=== PATIENT | male | born 1955 | race Caucasian/White ===

== ENCOUNTER 2019-09-28 09:34 | Outpatient (CLI) | payer MEDICARE, MEDICAID, SELFPAY | END 2019-09-28 09:35 | disposition home or self-care (01) | PROVIDERS: PCP Internal Medicine | DX: H91.90 Unspecified hearing loss, unspecified ear (principal); H61.22 Impacted cerumen, left ear | CPT/HCPCS: 99199 ==

== ENCOUNTER 2019-10-12 12:50 | Outpatient (CLI) | payer MEDICARE, MEDICAID, SELFPAY | END 2019-10-12 12:51 | disposition home or self-care (01) | LOC: ANHAUDIO 12:58 | PROVIDERS: PCP Internal Medicine; Referring Provider Internal Medicine; Visit Provider Internal Medicine | DX: E87.1 Hypo-osmolality and hyponatremia (principal); R53.83 Other fatigue | CPT/HCPCS: 92557; 92567 ==

== ENCOUNTER 2020-01-11 13:00 | Outpatient (RCR) | payer MEDICARE, MEDICAID, SELFPAY | END 2020-01-11 23:59 | disposition home or self-care (01) | LOC: ANHAUDIO 13:00 | PROVIDERS: PCP Internal Medicine; Referring Provider Physician Assistant; Visit Provider Internal Medicine | DX: H91.90 Unspecified hearing loss, unspecified ear (principal) | CPT/HCPCS: 99199; V5160; V5261 ==

== ENCOUNTER 2020-03-21 13:08 | Observation (INO) | payer MEDICARE, MEDICAID, SELFPAY ==
--- NOTE | ~2020-03-21 | CT_ITS ---
EXAMINATION: CT abdomen pelvis w con INDICATION: Abdominal pain and vomiting, GI bleeding TECHNIQUE: Computed tomographic images of the abdomen and pelvis were obtained after the administrati on of 100 cc of Omnipaque 350 intravenous contrast. The dose-length product (DLP) was 210.97 mGy-cm. Automated exposure control and iterative reconstruction technique were employed. COMPARISON: 10/06/2014, 06/14/2018 FINDINGS: There is mild emphysema of the visualized lung bases. The heart size is normal. The liver, spleen, pancreas, gallbladder, and adrenal glands are normal. The kidneys are unremarkable. There are surgical changes of posterior fusion from L4 through the sacrum which causes streak artifact and beltran its evaluation of the lower abdomen. Endovascular stents are present in the distal inferior vena cava and common and external iliac veins. No pathologically enlarged abdominal or pelvic lymph nodes are identified. There is no free intraperitoneal gas or evidence of bowel obstruction. A chronic superior endplate deformity of the L1 vertebral body is noted. IMPRESSION: 1. No CT correlate for the patient's symptoms. Reviewed, dictated and finalized at location A.
--- NOTE | 2020-03-21 13:11 | ED.GIBLEED ---
HPI - GI Bleed General Chief complaint: GI Bleed Stated complaint: N/V X1WK Time Seen by Provider: 03/21/20 13:11 Source: patient Mode of arrival: ambulatory Limitations: no limitations History of Present Illness HPI Narrative: Patient is a 65-year-old male with a history of recurrent DVT, hypertension, who presents for evaluation of vomiting and abdominal pain. Patient reports a one-week history of nausea, vomiting and upper abdominal pain. He denies distention. Reports emesis has been nonbloody, nonbilious. He reports stools have been dark, he does take Eliquis for recurrent DVT. Patient denies any lightheadedness or syncope. He states that he feels somewhat weak and tired. He denies rhinorrhea, cough, shortness of breath. Pain is sharp in nature located in the middle, upper abdomen without back pain. No ripping or tearing sensation to the flank. No chest pain. Related Data Home Medications Medication Instructions Recorded Confirmed allopurinol 300 mg tablet 300 mg PO DAILY 09/13/19 03/20/20 apixaban 5 mg tablet 5 mg PO BID 09/13/19 03/20/20 levothyroxine 100 mcg tablet 100 mcg PO DAILY 09/13/19 03/20/20 lisinopril 20 mg tablet 20 mg PO DAILY 09/13/19 03/20/20 rosuvastatin 10 mg tablet 10 mg PO DAILY 09/13/19 03/20/20 tamsulosin 0.4 mg capsule 0.4 mg PO DAILY 09/13/19 03/20/20 Allergies Allergy/AdvReac Type Severity Reaction Status Date / Time ASHIA Inhibitors Allergy Mild Unknown Verified 03/21/20 13:21 lisinopril Allergy Mild Unknown Verified 03/21/20 13:21 Bumble Bee Allergy Unknown Swelling Uncoded 03/13/20 13:11 Review of Systems Review of Systems: Narrative: CONSTITUTIONAL: Denies fever, chills EYES: Denies visual changes ENT: Denies rhinorrhea, congestion CARDIOVASCULAR: Denies chest pain RESPIRATORY: Denies cough or dyspnea. GASTROINTESTINAL: Reports abdominal pain, nausea and vomiting, reports some intermittent loose stools, denies bright red blood GENITOURINARY: Denies dysuria or hematuria. SKIN: Denies rash or itching. MUSCULOSKELETAL: Denies back pain, joint pain, or myalgia. NEUROLOGIC: Denies headache, numbness PMFSH Past Medical History Medical History (Updated 03/21/20 @ 15:38 by Trina Guerrero MD) DVT (deep venous thrombosis) Hyperlipidemia Hypertension Hyponatremia Onychomycosis Social History Social History Smoking status: Current every day smoker Tobacco type: cigars Second hand tobacco smoke exposure: Yes Smoking end date: 08/03/15 Alcohol intake: current Drinks per week: 14 Substance use: current Substance use type: marijuana Gender identity (if verbalized by the patient): Male Exam Narrative: Exam Narrative: GENERAL: Awake, alert, conversant thin, chronically ill-appearing HEAD: Normocephalic, atraumatic. EYES: PERRLA and EOMI. ENT: Nares clear, no rhinorrhea or epistaxis. Mucous membranes dry. NECK: Supple. CHEST: No respiratory distress, breathing even and non labored HEART: Regular rate, sinus rhythm ABDOMEN: Nondistended, tender in the periumbilical and epigastric area, no rebound, guarding present Rectal exam: No hemorrhoids, guaiac negative EXTREMITIES: Normal range of motion. No edema. SKIN: Warm, dry, no rash. NEURO:No focal deficits. Alert and oriented x3 Course Vital Signs Vital signs: Vital Signs Temperature 37.1 C 03/21/20 13:13 Pulse Rate 119 H 03/21/20 13:13 Respiratory Rate 16 03/21/20 13:13 Blood Pressure 108/76 03/21/20 13:13 Pulse Oximetry 99 03/21/20 13:13 Temperature 37.1 C 03/21/20 13:13 Pulse Rate 119 H 03/21/20 13:13 Respiratory Rate 16 03/21/20 13:13 Blood Pressure 108/76 03/21/20 13:13 Pulse Oximetry 99 03/21/20 13:13 MDM - GI Bleed MDM Narrative Medical decision making narrative: Patient is a 65-year-old male that presented for nausea, vomiting, abdominal pain and concern for dark stools. Patient rectal exam is guaiac negative.
[2020-03-21 13:13] VITALS: BP 108/76; PULSE 119; RESP 16; TEMP 37.1; O2SAT 99
--- NOTE | 2020-03-21 13:35 | ECG_ITS ---
Measurements Intervals [place] Rate: 109 P: 69 [place]: 172 QRS: 88 QRSD: 81 T: 75 QT: 336 QTc: 454 Interpretive Statements SINUS TACHYCARDIA POSSIBLE LEFT ATRIAL ENLARGEMENT BASELINE ARTIFACT- I, III, AVL ABNORMAL ECG Electronically Signed On 03-21-2020 14:00:04 CDT by Joe Tsai D.O.
[2020-03-21 13:49] LABS: Basophils Percent Auto 0.4 % (0.2-1.2); Eosinophils Percent Auto 0.4 % (0-4.4); Hematocrit 37.6 % (42.0-52.0); Hemoglobin 12.7 g/dL (14.0-18.0); Immature Granulocyte Absolute 0.04 K/mm3 (0.00-0.031); Immature Granulocyte Percent A 0.4 % (0-0.5); Lymphocytes Percent Auto 15.6 % (18.3-44.2); Mean Corpuscular HGB Conc 33.8 g/dl (32-36); Mean Corpuscular Hemoglobin 33.2 pg (26-34); Mean Corpuscular Volume 98.4 fl (80-100); Mean Platelet Volume 9.5 fl (7.4-10.4); Monocytes Absolute Auto 0.9 K/mm3 (0.1-0.6); Monocytes Percent Auto 8.6 % (2.6-8.5); Neutrophils Absolute Auto 7.6 K/mm3 (1.3-6.7); Neutrophils Percent Auto 74.6 % (45.5-73.1); Platelet Count Result 226 k/mm3 (150-375); Red Blood Count 3.82 M/mm3 (4.6-6.20); Red Cell Distribution Width 14.5 % (11.5-14.5); White Blood Count 10.2 K/mm3 (4.5-10.0)
[2020-03-21] MEDS: ONDANSETRON INJ 4 MG/2 ML VIAL IV PUSH (13:52)
[2020-03-21] MEDS: SODIUM CHLORIDE 0.9% IV 1,000 ML 999 ML IV CONT (13:52)
[2020-03-21] MEDS: MORPHINE SULFATE 4 MG/ML INJ IV PUSH (13:54)
[2020-03-21 13:58] LABS: INR 1.1; Prothrombin Time 13.8 Seconds (11.1-14.7)
[2020-03-21 13:59] LABS: Partial Thromboplastin Time 27.5 SECONDS (22.3-36.8)
[2020-03-21 14:00] LABS: Alanine Aminotransferase 11 U/L (4-50); Albumin Level 4.1 g/dL (3.5-5.1); Alkaline Phosphatase 68 U/L (38-126); Anion Gap 19 mmol/L (8-16); Aspartate Amino Transferase 23 U/L (17-59); Bilirubin,Total 1.1 mg/dL (0.2-1.3); Blood Urea Nitrogen 16 mg/dL (9-20); Calcium 9.3 mg/dL (8.4-10.2); Carbon Dioxide 19 mmol/L (22-30); Chloride 94 mmol/L (98-107); Estimated CRCL calculation 38 ml/min; Estimated Glomerular Filt Rate 51; Glucose 89 mg/dL (75-110); Lactic Acid Reflex 1.4 mmol/L (0.7-2.1); Lipase 99 U/L (23-300); Potassium 3.7 mmol/L (3.4-5.0); Sodium 132 mmol/L (137-145)
[2020-03-21] MEDS: SODIUM CHLORIDE 0.9% IV 500 ML 999 ML IV CONT (14:25)
[2020-03-21 16:26] VITALS: BP 104/54; PULSE 89; RESP 16; O2SAT 100
[2020-03-21 17:15] VITALS: BP 108/67; PULSE 67; RESP 16; O2SAT 100
[2020-03-21 17:16] LABS: Add Urine Microscopic? YES; Appearance Urine Clear (Clear); Bilirubin Urine Negative (Negative); Blood Urine Negative (Negative); Color Urine Yellow (Yellow); Glucose Urine UA Negative (Negative); Ketones Urine 1+ mg/dL (Negative); Leukocyte Esterase Ur Negative LEU/UL (Negative); Mucus Urine Rare /lpf; Nitrate Urine Negative (Negative); Protein Urine Negative (Negative); RBC Urine 0-2 /hpf (0-2); Squamous Epithelial Cell Urine Occasional /hpf (Few)
[2020-03-21 17:17] LABS: Specific Grav Ur 1.049 (1.001-1.035)
--- NOTE | 2020-03-21 17:37 | PC.NURSE ---
This patient, Darryn Tejada, was admitted to Medical Room 347-01. Patient/family oriented to hospital policies and general routines including ID bracelet, bed and alarms, visiting hours, pain management, procedures, bathroom and other care routines, personal items, smoking policy, room service/diet, and visiting hours. Valuables list has been completed. Information on how to activate the Rapid Response Team has been discussed. Patient/Family are encouraged to report perceived risks to care and to ask questions if they do not understand what they are told or what they should do.
[2020-03-21 17:46] VITALS: BMI 17.9
[2020-03-21 18:10] VITALS: BP 124/57; PULSE 72; RESP 12; TEMP 36.8; O2SAT 98
[2020-03-21] MEDS: SODIUM CHLORIDE 0.9% IV 1,000 ML 125 ML IV CONT (18:28)
[2020-03-21 21:16] VITALS: BP 104/55; PULSE 86; RESP 16; TEMP 36.6; O2SAT 100
--- NOTE | 2020-03-22 00:10 | PM.IMHP ---
H&P: HPI History of Present Illness Date/Time: 03/22/20 00:10 Chief complaint: Acute kidney injury/dehydration Narrative: Darryn Tejada is a 65 year old male who lives with his cousin. He has recurrent DVTs and is on Eliquis. The patient was vomiting today and having abdominal pain for about 1 week. The patient was checked for stool for occult blood and was found to be negative. The patient said he felt weak and tired. He had no fever no chills no shortness of breath no cough. He had upper abdominal pain that went to his back. When I saw him he was not having any further nausea and was tolerating ice chips well. H&H is noted to be 12.7 and 37.6. Creatinine 1.4. His anion gap is 19 most likely due to dehydration. Abdominal pelvis CT was read as no CT correlation for patient's symptoms. IV fluids Zofran and morphine. Patient has no longer having any discomfort. I spent approximately 35 minutes with the patient. He was somewhat irritated that he did not get his Eliquis. The patient has a history of having bilateral DVTs. The patient stated that he used to drink heavily and he smokes cigars. Patient is very hard of hearing as well. Date of service is 03/21/2020 Review of Systems Review of Systems: All systems reviewed & are unremarkable except as noted in HPI and below Constitutional: Constitutional: Reports as per HPI and Reports no additional constitutional complaints Eyes: Eyes: Reports as per HPI and Reports no additional eye complaints ENT: Reports system reviewed and no additional complaints, except as documented and Reports Normal hearing present Cardiovascular: Cardiovascular: Reports no additional cardiovascular complaints Respiratory: Respiratory: Reports no additional respiratory complaints and Reports no additional respiratory complaints Gastrointestinal: Gastrointestinal: Reports as per HPI and Reports no additional gastrointestinal complaints Musculoskeletal: Musculoskeletal: Reports no additional musculoskeletal complaints Integumentary/Breasts: Skin/Breast: Reports system reviewed and no additional complaints, except as docu and Reports as per HPI Neurologic: Reports system reviewed and no additional complaints, except as documented, Reports as per HPI and Reports Normal hearing present Psychiatric: Psychiatric: Reports no additional psychiatric complaints and Reports as per HPI Endocrine: Endocrine: Reports no additional endocrine complaints Hematologic/Lymphatic: Hematologic/Lymphatic: Reports no additional hematologic/lymphatic complaints Allergic/Immunologic: Allergic/Immunologic: Reports no additional allergic/immunologic complaints [facility] Past Medical History Medical History (Updated 03/22/20 @ 00:47 by Latosha Wellington NP) Bilateral cataracts BPH (benign prostatic hyperplasia) COPD (chronic obstructive pulmonary disease) Depression DVT (deep venous thrombosis) 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 Gout History of alcoholism History of TIA (transient ischemic attack) HTN (hypertension) with goal to be determined Hyperlipidemia Hypertension Hyponatremia Chronic hyponatremia due to alcoholism. He stopped drinking in his sodium . Hypothyroidism Onychomycosis Surgical History Surgical History (Updated 03/22/20 @ 00:27 by Latosha Wellington NP) H/O bilateral cataract extraction History of tonsillectomy Social History Social History (Updated 03/22/20 @ 00:30 by Latosha Wellington NP) Social History: Patient uses marijuana. smokes cigars. quit drinking months ago. Patient lives with his cousin. He is a full code. He does not have a durable power assistant prosecuting attorney for healthcare. He is single does out a children. He is disabled. Years smoked: 45 Smoking status: Current every day smoker Tobacco type: cigars Second hand tobacco smoke exposure: Yes Smoking end date: 08/03/15 Alcohol intake: current Drinks per week: 14 Substance use: current Substance use type: marijuana Last use:
[2020-03-22 01:02] LABS: Hematocrit 31.5 % (42.0-52.0); Hemoglobin 10.6 g/dL (14.0-18.0)
[2020-03-22] MEDS: SODIUM CHLORIDE 0.9% IV 1,000 ML 125 ML IV CONT (03:38)
[2020-03-22 05:52] LABS: Hematocrit 30.1 % (42.0-52.0); Hemoglobin 10.2 g/dL (14.0-18.0)
[2020-03-22] MEDS: LEVOTHYROXINE SODIUM 100 MCG TABLET PO (05:53)
[2020-03-22 05:59] VITALS: BP 129/73; PULSE 87; RESP 15; TEMP 37.2; O2SAT 96
[2020-03-22] MEDS: TAMSULOSIN HCL 0.4 MG CAPSULE PO (08:42)
[2020-03-22] MEDS: ROSUVASTATIN 10 MG TABLET PO (08:42)
[2020-03-22] MEDS: allopurinoL 300 MG TABLET PO (08:42)
[2020-03-22 11:55] LABS: Hematocrit 29.6 % (42.0-52.0); Hemoglobin 10.2 g/dL (14.0-18.0)
--- NOTE | 2020-03-22 11:59 | PM.DS ---
DS: Admitting Diagnosis Admitting Diagnosis Admitting Diagnosis: Acute kidney injury/dehydration DS: Discharge Diagnosis Discharge Diagnosis (1) Melena: Code(s): K92.1 - Melena Status: Acute Assessment and Plan: Pt admiitted with melena. His stool was noted to be negative for occult blood in the emergency room. Although they are dark. Pts HB is stable i will ask him to hold his eliquis for 3 days and restart. Pt states he had a recent colonscopy one year ago which showed polyps and does not want any further scopes at the moment. Pt states he had a small bleed in his stool on 2 days ago and nothing else since. (2) Depression: Code(s): F32.9 - Major depressive disorder, single episode, unspecified Status: Chronic Assessment and Plan: Patient had been on medication Celexa at one time but not at the moment. Not wanting to be on it. (3) Hypothyroidism: Code(s): E03.9 - Hypothyroidism, unspecified Status: Chronic Assessment and Plan: Continue with levothyroxine at home. (4) Gout: Code(s): M10.9 - Gout, unspecified Status: Chronic Assessment and Plan: Continue with allopurinol. (5) HTN (hypertension) with goal to be determined: Code(s): I10 - Essential (primary) hypertension Status: Chronic Assessment and Plan: Hold his lisinopril and monitor his renal function (6) BPH (benign prostatic hyperplasia): Code(s): N40.0 - Benign prostatic hyperplasia without lower urinary tract symptoms Status: Chronic Assessment and Plan: Continue tamsulosin (7) Hyperlipidemia: Code(s): E78.5 - Hyperlipidemia, unspecified Status: Chronic Assessment and Plan: Continue with rest of a statin (8) Hyponatremia: Code(s): E87.1 - Hypo-osmolality and hyponatremia Status: Chronic Assessment and Plan: The patient had been a heavy drinker (9) ARF (acute renal failure): Code(s): N17.9 - Acute kidney failure, unspecified Status: Acute Assessment and Plan: Pt is to hydrate on iv fluids, pt can restart lisinopril tomorrow. Pt states her feels better already no nausea no vomiting no abdominal pain. Wants to go home. Adviced to drink plenty of fluids at home also. DS: Summary Time Spent with Patient Time attestation: Total time spent providing and/or coordinating discharge services:20 minutes on day of discharge Exam Const: General: comfortable Nutritional Appearance: average body habitus Orientation/consciousness: oriented to person, oriented to place, oriented to time and patient oriented x3 Limitations: no limitations Chest: Chest palpation & inspection: normal inspection of the chest Resp: Effort & Inspection: normal respiratory effort Auscultation: clear to auscultation bilaterally Percussion: percussion normal Cardio: Palpation: normal PMI Rate: regular rate Rhythm: regular rhythm Heart sounds: S1 normal heart sound present and S2 normal heart sound present Peripheral pulses: Peripheral pulses 2+ throughout GI: Inspection: normal to inspection Auscultation: normal bowel sounds Skin: General skin exam: normal color Lesions: no lesions Rashes: no rashes Trauma: no lacerations or abrasions Wounds: no wounds Hair: normal Nails: normal Extrem: General: normal to inspection Right upper extremity: normal to inspection Left upper extremity: normal to inspection Right lower extremity: normal to inspection Left lower extremity: normal to inspection Psych: Appearance: grossly normal Mental Status: mental status grossly normal Speech and movement: Normal speech and movement present Affect: Anxious affect present Attitude: cooperative Thought process: Normal thought process present Insight: Fair insight present (Psych) Judgement: Fair judgement present (Psych) DS: Data Data Completed and Pending Labs on day of discharge: Labs from last 24 hours 08
[2020-03-22 13:20] LABS: Estimated CRCL calculation 62 ml/min; Estimated Glomerular Filt Rate > 60
[2020-03-22 13:53] VITALS: BMI 17.9
[2020-03-22 14:00] VITALS: BP 136/64; PULSE 98; RESP 16; TEMP 36.6; O2SAT 98
== END 2020-03-22 15:35 | disposition home or self-care (01) ==
LOC: ANHED 16:05 → ANH3MED 16:49
PROVIDERS: Nurse Practitioner; Admitting Provider Internal Medicine; Emergency Provider Emergency Medicine; PCP Physician Assistant; Visit Provider Family Medicine
DX: N17.9 Acute kidney failure, unspecified (principal); E86.0 Dehydration; K92.1 Melena; F32.9 Major depressive disorder, single episode, unspecified; E03.9 Hypothyroidism, unspecified; M10.9 Gout, unspecified; I10 Essential (primary) hypertension; N40.0 Benign prostatic hyperplasia without lower urinary tract symptoms; E78.5 Hyperlipidemia, unspecified; E87.1 Hypo-osmolality and hyponatremia; J44.9 Chronic obstructive pulmonary disease, unspecified; F17.290 Nicotine dependence, other tobacco product, uncomplicated; Z86.718 Personal history of other venous thrombosis and embolism; Z79.01 Long term (current) use of anticoagulants
CPT/HCPCS: 36415; 74177; 80053; 81001; 82565; 83605; 83690; 85014; 85018; 85025; 85610; 85730; 86850; 86900; 86901; 87040; 93005; 96361; 96374; 96375; 99285; A9270; G0378; J2270; J2405; J7030; J7040; Q9967

== ENCOUNTER 2020-11-10 10:20 | Outpatient (CLI) | payer MEDICARE, MEDICAID, SELFPAY ==
[2020-11-10 10:48] LABS: Hemoglobin 10.4 g/dL (14.0-18.0); Mean Corpuscular HGB Conc 33.5 g/dl (32-36); Mean Corpuscular Hemoglobin 31.2 pg (26-34); Mean Corpuscular Volume 93.1 fl (80-100); Mean Platelet Volume 9.1 fl (7.4-10.4); Platelet Count Result 332 k/mm3 (150-375); Red Blood Count 3.33 M/mm3 (4.6-6.20); Red Cell Distribution Width 14.1 % (11.5-14.5); White Blood Count 11.7 K/mm3 (4.5-10.0)
[2020-11-10 11:03] LABS: Alanine Aminotransferase 7 U/L (4-50); Albumin Level 4.1 g/dL (3.5-5.1); Alkaline Phosphatase 65 U/L (38-126); Anion Gap 7 mmol/L (8-16); Aspartate Amino Transferase 24 U/L (17-59); Bilirubin,Total 0.6 mg/dL (0.2-1.3); Blood Urea Nitrogen 21 mg/dL (9-20); Calcium 9.7 mg/dL (8.4-10.2); Carbon Dioxide 27 mmol/L (22-30); Chloride 98 mmol/L (98-107); Cholesterol 134 mg/dL (0-200); Estimated Glomerular Filt Rate > 60; Glucose 98 mg/dL (75-110); HDL Direct 36 mg/dL; Magnesium 1.8 mg/dL (1.6-2.3); Potassium 4.4 mmol/L (3.4-5.0); Sodium 132 mmol/L (137-145); Triglycerides 99 mg/dL (<150)
[2020-11-10 11:14] LABS: LDL Cholesterol Direct 69 mg/dL
[2020-11-10 11:33] LABS: Prostate Specific Antigen 1.2 ng/mL (< OR = 4.0)
[2020-11-10 12:30] LABS: Iron 39 ug/dL (49-181)
[2020-11-10 12:39] LABS: Percent Iron Saturation 15 % (20-50)
[2020-11-10 12:47] LABS: Free T4 Free Thyroxine 1.31 ng/mL (0.78-2.19)
[2020-11-15 12:29] LABS: Testosterone Free 14.8 pg/mL (35.0-155.0); Testosterone Total 180 ng/dL (250-1100)
== END 2020-11-10 10:21 | disposition home or self-care (01) ==
PROVIDERS: PCP Physician Assistant; Visit Provider Physician Assistant
DX: D64.9 Anemia, unspecified (principal); E78.5 Hyperlipidemia, unspecified; E03.9 Hypothyroidism, unspecified; R53.83 Other fatigue; Z12.5 Encounter for screening for malignant neoplasm of prostate; I10 Essential (primary) hypertension
CPT/HCPCS: 36415; 80053; 80061; 82607; 82746; 83540; 83550; 83735; 84153; 84402; 84403; 84439; 84443; 85027; G0103

== ENCOUNTER 2020-11-27 12:30 | Outpatient (CLI) | payer MEDICARE, MEDICAID, SELFPAY ==
--- NOTE | 2020-11-27 12:46 | ECHO_ITS ---
Patient Info Name: Darryn Tejada Age: 65 years : 1955 Gender: Male Ht: 68 in Wt: 114 lbs BSA: 1.56 m2 HR: 111 bpm BP: 95 / 72 mmHg Technical Quality: Fair Exam Date: 11/27/2020 12:53 PM Exam Location: [facility] Patient Status: Outpatient Admit Date: 11/27/2020 Staff Ordering Physician: Joe Tsai DO Parts Delivery Driver: Kassy Thornton RDCS Attending Provider: Joe Tsai DO Referring Physician: Eulalio WHEAT; Exam Type: CA echo doppler color flow Study Info Indications R01.1 - Cardiac murmur, unspecified Complete two-dimensional, color flow and Doppler transthoracic echocardiogram is performed. Summary 1. Complete two-dimensional, color flow and Doppler transthoracic echocardiogram is performed. 2. Left ventricular chamber dimension is normal. 3. Left ventricular systolic function is normal, estimated at 60-65%. 4. The left ventricular diastolic function is grade I diastolic dysfunction. 5. E/e' 6 is not elevated. 6. Global longitudinal strain is normal at -18.3%. 7. There is mild aortic valve sclerosis. 8. The mitral valve has mildly calcified annulus. 9. No pulmonary hypertension, estimated pulmonary arterial systolic pressure is 23 mmHg. 10. There is trivial pericardial effusion. Left Ventricle E/e' 6 is not elevated. Global longitudinal strain is normal at -18.3%. Left ventricular chamber dimension is normal. Left ventricular systolic function is normal, estimated at 60-65%. The left ventricular diastolic function is grade I diastolic dysfunction. Right Ventricle Right ventricular chamber dimension is normal. Right ventricular systolic function is normal. Left Atria Left atrial chamber dimension is normal. Right Atria Right atrial chamber dimension is normal. Aortic Valve The aortic valve is trileaflet. There is mild aortic valve sclerosis. There is no aortic valve stenosis. There is no aortic valve regurgitation. Pulmonic Valve There is no pulmonic regurgitation. Mitral Valve The mitral valve has mildly calcified annulus. There is no mitral valve stenosis. There is no mitral valve regurgitation. Tricuspid Valve There is no tricuspid valve regurgitation. No pulmonary hypertension, estimated pulmonary arterial systolic pressure is 23 mmHg. Pericardium/Pleural There is trivial pericardial effusion. Inferior Vena Cava Normal inferior vena cava with >50% collapse upon inspiration consistent with normal right atrial pressure, 5 mmHg. Aorta The aortic root size at the sinus of Valsalva is normal. Left Ventricular Outflow Tract Name Value Normal LVOT 2D LVOT Diameter 2.1 cm LVOT Doppler LVOT Peak Gradient 7 mmHg LVOT Mean Gradient 4 mmHg LVOT VTI 23 cm LVOT VTI/AV VTI Ratio 0.7 LVOT Stroke Volume 77 ml LVOT CO 8.5 l/min LVOT CI 5.5 l/min/m2 Pulmonic Valve
[2020-11-27 14:51] LABS: Erythrocyte Sedimentation Rate 106 mm/hr (0-20)
== END 2020-11-27 12:31 | disposition home or self-care (01) ==
PROVIDERS: PCP Physician Assistant; Visit Provider Internal Medicine Cardiovascular Disease
DX: R01.1 Cardiac murmur, unspecified (principal); M54.5 Low back pain
CPT/HCPCS: 36415; 85652; 93306

== ENCOUNTER 2020-11-30 14:45 | Outpatient (CLI) | payer MEDICARE, MEDICAID, SELFPAY ==
--- NOTE | ~2020-11-30 | CT_ITS ---
EXAMINATION: CT chest abdomen pelvis wo con EXAM DATE: 11/30/2020 15:20 INDICATION: R63.4 - Abnormal weight loss . TECHNIQUE: Spiral CT of the chest, abdomen and pelvis was performed without contrast. Axial, fragoso l and sagittal images chest, abdomen and pelvis were reviewed. Coronal maximum intensity pixel image s of chest reviewed. The dose-length product (DLP) for this examination was 385.02 mGy-cm. The expo sure was tailored according to patient size (auto mA exposure control), and iterative reconstruction (ASIR) was used as additional dose reduction technique. Comparison is made to prior examination from 03/21/2020. FINDINGS: CHEST: The lungs are clear. There or small pericardial and small right pleural effusions. There is mild to moderate emphysema, moderate amount of hyperinflation. Cardiac monitoring device. Tracheobr onchial tree is patent. There is no mediastinal, hilar or axillary lymphadenopathy. There is no p neumothorax. Heart normal in size. No evidence of coronary arterial calcification. ABDOMEN PELVIS: Moderate amount of ascites, new compared to previous examination. No definite liver s urface nodularity, but the liver does appear atrophic compared to previous examination, which can be seen with cirrhosis. The spleen, adrenal glands and pancreas are unremarkable. Gallbladder is unrem arkable. No biliary obstruction. There is no nephrolithiasis or hydronephrosis. The prostate is u nremarkable. Some diffuse bladder wall thickening, could indicate chronic cystitis. Acute cystitis n ot excludable. There is no retroperitoneal or pelvic lymphadenopathy. There is moderate to severe scattered arteriosclerotic disease. There are bilateral IVC and pelvic venous stents. Suspect moderate gastric body wall thickening. Differential diagnosis for stomach wall thickening inc ludes gastritis, Carmen Otero syndrome, Menetrier's disease, and possibly lymphoma. No small bow el obstruction. There is fecal impaction, with rectal vault measuring 8.5 cm. Otherwise small to mode rate amount of colonic contents proximal to this. No free intraperitoneal gas. There are old left-s ided rami fractures. Lumbosacral hardware. IMPRESSION: 1. Development of atrophic liver, and moderate ascites. Could indicate cirrhosis. Can't exclude sonia toneal carcinomatosis. Consider diagnostic paracentesis. 2. Diffuse gastric body wall thickening, some differential considerations above. 3. Diffuse bladder wall thickening probably chronic cystitis. 4. Small pericardial and right pleural effusions. 5. Fecal impaction. 6. Emphysema and hyperinflation. Reviewed, dictated and finalized at location A. IMPRESSION: 1. Development of atrophic liver, and moderate ascites. Could indicate cirrhos is. Can't exclude peritoneal carcinomatosis. Consider diagnostic paracentesis. 2. Diffuse gastric body wall thickening, some differential considerations abov e. 3. Diffuse bladder wall thickening probably chronic cystitis. 4. Small pericardial and right pleural effusions. 5. Fecal impaction. 6. Emphysema and hyperinflation.
== END 2020-11-30 14:46 | disposition home or self-care (01) ==
PROVIDERS: PCP Physician Assistant; Visit Provider Physician Assistant
DX: R63.4 Abnormal weight loss (principal); J43.9 Emphysema, unspecified; I31.3 Pericardial effusion (noninflammatory); R93.89 Abnormal findings on diagnostic imaging of other specified body structures; R91.8 Other nonspecific abnormal finding of lung field
CPT/HCPCS: 71250; 74176

== ENCOUNTER → 2020-12-07 00:20 | Outpatient (CLI) | payer MEDICARE, MEDICAID, SELFPAY ==
[2020-12-07 18:42] LABS: SARS-CoV-2 RNA PCR Negative
== END ==
PROVIDERS: PCP Physician Assistant; Visit Provider Internal Medicine Gastroenterology
DX: Z01.812 Encounter for preprocedural laboratory examination (principal); Z20.822 Contact with and (suspected) exposure to COVID-19
CPT/HCPCS: C9803; U0003; U0005

== ENCOUNTER 2020-12-10 01:51 | Day surgery (SDC) | payer MEDICARE, MEDICAID, SELFPAY ==
[2020-11-28 15:05] VITALS: BMI 17.4
--- NOTE | 2020-12-04 15:37 | PC.NURSE ---
REVIEWED NEW TESTING DATES AND TIMES WITH PATIENT NO OTHER CHANGES IN HEALTH OR MEDICATIONS
[2020-12-10 09:13] VITALS: BP 115/73; PULSE 114; RESP 18; TEMP 36.8; O2SAT 99; BMI 16.4
[2020-12-10] MEDS: LACTATED RINGERS 1,000 ML 150 ML IV CONT (09:19)
--- NOTE | 2020-12-10 09:46 | WPDANESEPPF ---
Anes - Initial Pre Proc Eval Procedure: Operation Date: 12/10/20 10:15 Proposed Procedures p Esophagogastroduodenoscopy - Krishna Franco MD Date/Time: 12/10/20 09:46 Surgeon: Krishna Franco MD Pre Op Diagnosis: abnormal weightloss Patient Data Age: 65 Gender: M Height: 5 ft 8 in Weight: 49 kg Last Vital Signs Temp 98.2 F 12/10/20 09:13 Pulse 114 H 12/10/20 09:13 Resp 18 12/10/20 09:13 BP 115/73 12/10/20 09:13 Pulse Ox 99 12/10/20 09:13 Allergies Allergy/AdvReac Type Severity Reaction Status Date / Time Bumble Bee Allergy Unknown Swelling Uncoded 12/10/20 09:11 Home Medications Medication Instructions Recorded Confirmed Type epinephrine [EpiPen 2-Callum] 0.3 ml IM ONCE PRN 03/21/20 12/10/20 History apixaban 5 mg tablet 5 mg PO BID #180 tablet 04/12/20 12/10/20 Rx rosuvastatin 10 mg tablet 10 mg PO DAILY #90 tablet 04/12/20 11/28/20 Rx allopurinol 300 mg tablet 300 mg PO DAILY #90 tablet 08/10/20 12/10/20 Rx albuterol sulfate 90 mcg/actuation 2 puff INHALATION Q4-6H PRN #8.5 g 09/25/20 12/10/20 Rx aerosol inhaler levothyroxine 100 mcg tablet 100 mcg PO DAILY #90 tablet 09/25/20 12/10/20 Rx hydrocodone 5 mg-acetaminophen 325 1 tablet PO Q12H PRN #20 tablet 11/26/20 12/10/20 Rx mg tablet omeprazole 20 mg capsule,delayed 20 mg PO DAILY #30 cap 11/26/20 12/10/20 Rx release prednisone 10 mg tablet 10 mg PO DAILY #30 tablet 11/28/20 12/10/20 Rx prednisone 5 mg tablet 5 mg PO DAILY #30 tablet 11/28/20 Rx Patient hx anesthesia problems: none Family hx anesthesia problems: none PMFSH Past Medical History Medical History Bilateral cataracts BPH (benign prostatic hyperplasia) COPD (chronic obstructive pulmonary disease) Depression DVT (deep venous thrombosis) 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 Gout History of alcoholism History of TIA (transient ischemic attack) HTN (hypertension) with goal to be determined Hyperlipidemia Hypertension Hyponatremia Chronic hyponatremia due to alcoholism. He stopped drinking in his sodium . Hypothyroidism Onychomycosis Surgical History Surgical History H/O bilateral cataract extraction History of tonsillectomy Family History Family History Mother Patient's mother is Father Patient's father is in good health Social History Social History Social History: Patient uses marijuana. smokes cigars. quit drinking months ago. Patient lives with his cousin. He is a full code. He does not have a durable power mergers and acquisitions attorney for healthcare. He is single does out a children. He is disabled. Smoking packs per day: 1 Smoking cigarettes per day: 20.0 Years smoked: 48 Smoking pack-years: 48.00 Smoking status: Current every day smoker Tobacco type: cigarettes Second hand tobacco smoke exposure: Yes Smoking end date: 08/03/15 Alcohol intake: current Drinks per week: 4 Substance use: current Substance use type: marijuana Last use: 11/28/2020 Living arrangements: with family Gender identity (if verbalized by the patient): Male Spiritual care concerns: No Anes - Eval Final PreProcedure Day of Procedure 12/10/20 09:46 Patient weight: thin Heart: regular rate and rhythm Lungs: clear to auscultation Airway: Mallampati scale class II Neurological: alert and oriented Last oral intake: >/= 8 hours ASA classification: III Emergent: no Anesthetic plan: proceed Anesthesia type and monitoring: general GIVS and standard monitoring Informed Consent: The patient's anesthetic plan and its attendant risks and benefits were discussed with the patient/family/POA. Questions were solicited and answers provided to the satisfaction of the patient/family/POA.
--- NOTE | 2020-12-10 10:11 | PM.HPGS ---
History of Present Illness History of Present Illness Consent: Risks, benefits, and alternatives have been discussed and questions answered. Patient agrees to proceed with procedure. Chief complaint: abnormal weightloss Narrative: Darryn Tejada is a 65 year old male with nausea, unintentional weight loss. CT scan showed ascites, atrophic liver and diffuse gastric body wall thickening. Liver enzymes normal. Had colonoscopy about 2 years ago. He normally drinks 4-5 beers daily (quit few weeks ago) Review of Systems Constitutional: Constitutional: Denies headache(s) and Reports weight loss Eyes: Eyes: Denies blurry vision ENT: Reports Normal hearing present, Denies headache(s) and Denies neck pain Cardiovascular: Cardiovascular: Denies chest pain and Denies dyspnea Respiratory: Respiratory: Denies dyspnea Gastrointestinal: Gastrointestinal: Reports no additional gastrointestinal complaints Genitourinary: Genitourinary: Denies dysuria Musculoskeletal: Musculoskeletal: Denies neck pain Integumentary/Breasts: Skin/Breast: Denies dry skin Neurologic: Reports Normal hearing present, Denies headache(s) and Denies weakness Psychiatric: Psychiatric: Denies anxiety Endocrine: Endocrine: Denies change in body appearance Hematologic/Lymphatic: Hematologic/Lymphatic: Denies easy bleeding Allergic/Immunologic: Allergic/Immunologic: Denies urticaria PMFSH Past Medical History Medical History (Updated 12/10/20 @ 10:15 by Krishna Franco MD) Abnormal CT scan, stomach Ascites Bilateral cataracts BPH (benign prostatic hyperplasia) COPD (chronic obstructive pulmonary disease) Depression DVT (deep venous thrombosis) 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 Gout History of alcoholism History of TIA (transient ischemic attack) HTN (hypertension) with goal to be determined Hyperlipidemia Hypertension Hyponatremia Chronic hyponatremia due to alcoholism. He stopped drinking in his sodium . Hypothyroidism Nausea Onychomycosis Surgical History Surgical History H/O bilateral cataract extraction History of tonsillectomy Family History Family History Mother Patient's mother is Father Patient's father is in good health Social History Social History Social History: Patient uses marijuana. smokes cigars. quit drinking months ago. Patient lives with his cousin. He is a full code. He does not have a durable power distribution specialist for healthcare. He is single does out a children. He is disabled. Smoking packs per day: 1 Smoking cigarettes per day: 20.0 Years smoked: 48 Smoking pack-years: 48.00 Smoking status: Current every day smoker Tobacco type: cigarettes Second hand tobacco smoke exposure: Yes Smoking end date: 08/03/15 Alcohol intake: current Drinks per week: 4 Substance use: current Substance use type: marijuana Last use: 11/28/2020 Living arrangements: with family Gender identity (if verbalized by the patient): Male Spiritual care concerns: No Meds Home Medications and Allergies Home Medications Medication Instructions Recorded Confirmed Type epinephrine [EpiPen 2-Callum] 0.3 ml IM ONCE PRN 03/21/20 12/10/20 History apixaban 5 mg tablet 5 mg PO BID #180 tablet 04/12/20 12/10/20 Rx rosuvastatin 10 mg tablet 10 mg PO DAILY #90 tablet 04/12/20 11/28/20 Rx allopurinol 300 mg tablet 300 mg PO DAILY #90 tablet 08/10/20 12/10/20 Rx albuterol sulfate 90 mcg/actuation 2 puff INHALATION Q4-6H PRN #8.5 g 09/25/20 12/10/20 Rx aerosol inhaler levothyroxine 100 mcg tablet 100 mcg PO DAILY #90 tablet 09/25/20 12/10/20 Rx hydrocodone 5 mg-acetaminophen 325 1 tablet PO Q12H PRN #20 tablet 11/26/20 12/10/20 Rx mg tablet omeprazole 20 mg capsule,delayed 20 mg PO DAILY #30 cap 11/26/20 12/10/20 Rx release
[2020-12-10 10:32] VITALS: BP 110/75; PULSE 108; RESP 25; O2SAT 99
[2020-12-10 10:42] VITALS: BP 120/81; PULSE 102; RESP 28; O2SAT 100
[2020-12-10 10:52] VITALS: BP 134/86; PULSE 96; RESP 20; O2SAT 99
== END 2020-12-10 11:15 | disposition home or self-care (01) ==
PROVIDERS: PCP Physician Assistant; Visit Provider Internal Medicine Gastroenterology
PROC: 0DJ08ZZ Inspection of Upper Intestinal Tract, Via Natural or Artificial Opening Endoscopic (ICD-10-PCS; CPT 43235; principal; 2020-12-10 10:15)
DX: C16.2 Malignant neoplasm of body of stomach (principal); K44.9 Diaphragmatic hernia without obstruction or gangrene; R63.4 Abnormal weight loss; R11.2 Nausea with vomiting, unspecified; R93.3 Abnormal findings on diagnostic imaging of other parts of digestive tract; J44.9 Chronic obstructive pulmonary disease, unspecified; E78.5 Hyperlipidemia, unspecified; I10 Essential (primary) hypertension; E03.9 Hypothyroidism, unspecified; F12.90 Cannabis use, unspecified, uncomplicated; R18.8 Other ascites; Z79.01 Long term (current) use of anticoagulants; Z79.891 Long term (current) use of opiate analgesic; Z79.51 Long term (current) use of inhaled steroids; Z86.718 Personal history of other venous thrombosis and embolism; N40.0 Benign prostatic hyperplasia without lower urinary tract symptoms; Z86.73 Personal history of transient ischemic attack (TIA), and cerebral infarction without residual deficits; M10.9 Gout, unspecified; H26.9 Unspecified cataract; F10.21 Alcohol dependence, in remission; F17.210 Nicotine dependence, cigarettes, uncomplicated
CPT/HCPCS: 43239; 87081; 88305; 88313; 88342; C9803; J2250; J7120; U0003; U0005

== ENCOUNTER 2020-12-13 13:03 | Outpatient (CLI) | payer MEDICARE, MEDICAID, SELFPAY ==
--- NOTE | ~2020-12-13 | US_ITS ---
EXAMINATION: US paracentesis abd w/image DATE: 12/13/2020 14:50 INDICATION: Ascites. TECHNIQUE: The procedure and its risks and benefits were discussed with the patient. Potential risks discussed included bleeding and infection. The skin was prepped and draped in sterile fashion. 1% lid ocaine was used for local anesthesia. Under ultrasound guidance, a 5 Fr catheter with trochar was adv anced into the ascites in the right lower quadrant. Fluid was aspirated into vacuum bottles. The cath eter was removed, and a dressing was applied. There were no immediate complications. FINDINGS: Ultrasound images demonstrate ascites and the catheter within the fluid. IMPRESSION: 1. Successful ultrasound-guided paracentesis yielding 1200 mL of clear yellowish fluid. Reviewed, dictated and finalized at location A. IMPRESSION: 1. Successful ultrasound-guided paracentesis yielding 1200 mL of clear yellowi sh fluid.
[2020-12-13 13:34] LABS: Basophils Percent Auto 0.3 % (0.2-1.2); Eosinophils Absolute Auto 0.2 K/mm3 (0-0.3); Eosinophils Percent Auto 1.9 % (0-4.4); Hematocrit 31.2 % (42.0-52.0); Hemoglobin 10.1 g/dL (14.0-18.0); Immature Granulocyte Absolute 0.03 K/mm3 (0.00-0.031); Immature Granulocyte Percent A 0.3 % (0-0.5); Lymphocytes Absolute Auto 1.35 K/mm3 (0.9-3.2); Lymphocytes Percent Auto 13.2 % (18.3-44.2); Mean Corpuscular HGB Conc 32.4 g/dl (32-36); Mean Corpuscular Hemoglobin 29.5 pg (26-34); Mean Corpuscular Volume 91.2 fl (80-100); Mean Platelet Volume 8.5 fl (7.4-10.4); Monocytes Absolute Auto 0.7 K/mm3 (0.1-0.6); Monocytes Percent Auto 7.2 % (2.6-8.5); Neutrophils Absolute Auto 7.9 K/mm3 (1.3-6.7); Neutrophils Percent Auto 77.1 % (45.5-73.1); Platelet Count Result 553 k/mm3 (150-375); Red Blood Count 3.42 M/mm3 (4.6-6.20); Red Cell Distribution Width 14.9 % (11.5-14.5); White Blood Count 10.2 K/mm3 (4.5-10.0)
[2020-12-13 14:14] LABS: INR 1.1; Prothrombin Time 14.7 Seconds (11.1-14.7)
[2020-12-13 16:18] LABS: Source Peritoneal Fluid Peritoneal Fluid
[2020-12-13 16:19] LABS: Appearance Peritoneal Fluid Clear (Clear); Color Peritoneal Fluid Yellow (Colorless); Lymphocytes Peritoneal Fluid 46 %; Macrophages Peritoneal Fluid 16 %; Monocytes Peritoneal Fluid 32 %; Neutrophils Peritoneal Fluid 6 % (0-25); Nucleated Cells Peritoneal Flu 302 /uL (0-500); RBC Peritoneal Fluid 0 /uL (0-100000)
[2020-12-15 21:01] LABS: Albumin Peritoneal Fluid 1.5 g/dL
== END 2020-12-13 13:04 | disposition home or self-care (01) ==
PROVIDERS: Internal Medicine Gastroenterology; Radiology Diagnostic Radiology; PCP Physician Assistant; Visit Provider Physician Assistant
DX: R18.8 Other ascites (principal); R93.3 Abnormal findings on diagnostic imaging of other parts of digestive tract
CPT/HCPCS: 36415; 49083; 82042; 85025; 85610; 87070; 87075; 87205; 88104; 88108; 88305; 89051